=== PATIENT | male | born 1965 | race Caucasian/White ===

== ENCOUNTER 2022-12-16 09:29 | Day surgery (SDC) | payer MEDICAID, SELFPAY ==
[2022-12-16 09:49] VITALS: BP 116/88; PULSE 80; RESP 18; TEMP 36.7; O2SAT 96
[2022-12-16] MEDS: Lactated Ringers 1,000 ML 30 ML IV (10:08)
--- NOTE | 2022-12-16 10:23 | W.ANESPRE ---
General Info Date of Service Date Performed: 12/16/22 Height: 5 ft 8 in Weight: 66.7 kg Body Mass Index (BMI): 22.4 Surgical Procedure: Operation Date: 12/16/22 11:10 Proposed Procedure Side Surgeon p Micro Laryngoscopy w/Biopsy Sher Krueger MD Meds Allergies and Home Medications Allergies Allergy/AdvReac Type Severity Reaction Status Date / Time concrete Allergy Unknown Uncoded 12/16/22 09:55 Home Medication Medication Instructions Recorded aspirin 81 mg tablet,delayed 81 mg PO DAILY 10/30/22 release (Adult Aspirin Regimen) betamethasone dipropionate 0.05 % 1 applic topical DAILY 10/30/22 topical ointment bupropion HCl 150 mg 24 hr tablet, 150 mg PO QAM 12/03/22 extended release Current Visit Medications: Current Medications Generic Name Dose Route Start Last Admin Trade Name Freq PRN Reason Stop Dose Admin Ringer's Solution 1,000 mls @ 30 mls/hr 12/16/22 07:45 12/16/22 10:08 IV 01/15/23 07:44 30 mls/hr INFUSION SHAHRZAD Administration Tranexamic Acid 1,000 mg/ 60 mls @ 360 mls/hr 12/16/22 10:30 Sodium Chloride IVPB 01/15/23 10:29 PREOP SHAHRZAD IV Miscellaneous Supplies 1 each 12/16/22 06:00 Iv Access IV 12/16/22 23:59 DIRECTED SHAHRZAD Sodium Chloride 0 ml 12/16/22 06:00 Normal Saline Flush 10 Ml Syr IV 12/16/22 23:59 PRN PRN Sodium Chloride 0 ml 12/16/22 06:00 Normal Saline 10 Ml Vial IJ 12/16/22 23:59 DIRECTED PRN Sterile Water 0 ml 12/16/22 06:00 Water,Injection,Sterile 10 Ml Vial IJ 12/16/22 23:59 DIRECTED PRN PFSH Active Problems Active Problems: Problem Status Onset Code 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 Tobacco Smoking/Tobacco Use Status: Current every day Tobacco Type: cigarettes Smoking cigarettes per day: 6 Alcohol Alcohol Intake: current Alcohol intake frequency: 3 or more drinks per day Alcohol type: beer Substance Use Substance use: Never Vital Signs and Lab Results Vital Signs Most Recent Vital Signs in EMR: Most Recent Vital Signs Temp Pulse Resp BP Pulse Ox 36.7 C 80 18 116/88 96 12/16/22 09:49 12/16/22 09:49 12/16/22 09:49 12/16/22 09:49 12/16/22 09:49 Lab Results Blood Type / Crossmatch: No Data to Display Complete Blood Count: No Data to Display Complete Metabolic Panel: No Data to Display Liver Function Panel: No Data to Display Coagulation Panel: No Data to Display Cardiac Panel: No Data to Display Arterial Blood Gas: No Data to Display Venous Blood Gas: No Data to Display Pancreas Panel: No Data to Display Thyroid Panel: No Data to Display Infectious Disease: No Data to Display Blood Cultures: No Data to Display Toxicology Panel: No Data to Display Anesthesia Assessment and Plan Anesthesia History Personal History: No History of Anesthesia Complications Family History: No Family History of Anesthesia Complications Exercise Tolerance Exercise Tolerance: Metabolic Equivalents>4 Pertinent Negatives Pertinent Negatives: No Symptoms of GERD Cardiac & Pulmonary Exam Cardiac Exam: Normal S1/S2 Heart Sounds Pulmonary Exam: Clear Bilateral Breath Sounds Implantable Cardiac Device Does patient have a Pacemaker or an ICD?: No Airway Exam Known Difficult Airway: No Mallampati Class: 2 Mouth Opening: Normal (> 3cm) Thyromental Distance: Greater than 3 cm Neck Range of Motion: Full ROM Neck Circumference: Normal Teeth Condition: Generalized Poor Dentition and Advised tooth loss possible given current condition (indicate tooth) (41) ASA Classification ASA Score: ASA 2 Emergency Case?: No NPO Status NPO Status: NPO Clears >2 hours, Solids >8 hours Anesthesia Plan Resuscitation Status: Full Code Anesthesia Technique: General Anesthesia Airway Planned: Natural Airway Monitors Used: Standard Monitors
[2022-12-16 10:24] VITALS: BMI 22.4
--- NOTE | 2022-12-16 11:24 | PDOC.DSDIS_ITS ---
Date of service: 12/16/22 Time of Service: 11:26 Discharge Plan Disposition Patient Disposition: Home Condition: Good Discharge Details Reason For Visit: Laryngoscopy with biopsy Attending Provider: Sher Krueger Primary Care Provider: Cy Riojas Home Meds and New Rx's Prescriptions: No Action bupropion HCl 150 mg tablet extended release 24 hr 150 mg PO QAM aspirin [Adult Aspirin Regimen] 81 mg tablet,delayed release (DR/EC) 81 mg PO DAILY betamethasone dipropionate 0.05 % ointment 1 applic topical DAILY Discharge Instructions Additional Instructions: No driving for 72 hours. Ibuprofen or Tylenol for pain control. No dietary li mitations. Call with any concerns or problems. You should expect a phone call from me within 1 regard to the biopsy results. Please call if you do not hear from me. My cell phone number is [phone]. Please call with any concerns or problems. If you cannot reach me and you feel this is an emergency, please proceed to the emergency room or call 911 Stand Alone Forms: Anesthesia Discharge Inst., Tobin Wilhelm ([facility]) Diet:: As Tolerated Discharge Orders Discharge Orders: Discharge Order (Routine); Ordered 12/16/22 Ordered By: Sher Krueger
--- NOTE | 2022-12-16 11:37 | PHAR_PTH ---
PATIENT: Alejandro Wetzel JR LOC: [facility] U#:[id number] AGE/SX: 57/M ROOM: RE12/16/[address]: Sher Krueger MD : [id number] BED: DIS: 12/16/2022 SPEC #: [id number] RECD: 12/16/22 13:01 STATUS: IAN MA #: [id number] SANTIAGO: 12/16/22 11:[address]: Sher Krueger DEPT: Surgical Specimen RECD BY: Anahy Mckinley ENTERED: 12/16/22 13:08 SP TYPE: PHAR DAV DR: Cy Riojas Tissues: 1 - PHARYNX BIOPSY Procedures: GROSS AND MICRO LEVEL 4 IMMUNOPEROXIDASE STAIN Comments: [id number]
--- NOTE | 2022-12-16 11:47 | ROE_ITS ---
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 Unable to biopsy in the office. Options were explained to the family regarding further management. He elected to undergo the above procedure. Consent was filled out and signed prior to surgery. H&P was reviewed. There have been no changes. Findings: Necrotic mass largely replacing the epiglottis. No obvious secondary lesions. Procedure Description: After obtaining an adequate level of general mask anesthesia, the patient was positioned in supine position and prepped and draped in appropriate fashion. A video laryngoscope was carefully introduced into the oral cavity and advanced to the level of the epiglottis, and multiple biopsies were removed with cutting Blakesley's. These were placed in formalin. After ensuring relative hemostasis , and a secure airway, the patient was awakened and transported to the recovery room in stable condition. I was present throughout the entire case.
[2022-12-16 11:55] VITALS: BP 125/87; PULSE 82; RESP 18; TEMP 36.3; O2SAT 93
--- NOTE | 2022-12-16 11:58 | W.ANESPOSTOP ---
Postoperative Evaluation Date, Time and Location Date Performed: 12/16/22 Time Performed: 11:58 Patient Location: Day Surgery Unit Vital Signs Most Recent Imported Vital Signs: Most Recent Vital Signs Temp Pulse Resp BP Pulse Ox 36.7 C 80 18 116/88 96 12/16/22 09:49 12/16/22 09:49 12/16/22 09:49 12/16/22 09:49 12/16/22 09:49 Pain Score Most Recent Pain Score: Most Recent Pain Score Pain Level 0 12/16/22 09:49 Assessment Mental Status: Arousable with meaningful communication Airway and Respiratory Function: Patent airway with normal (patient baseline) respiratory exam Cardiovascular Function: Hemodynamically Stable Hydration Status: Adequately Hydrated Nausea & Vomiting: No Nausea or Vomiting Pain: Pt. Denies Any Pain Peripheral Nerve Block: Patient did not receive a nerve block
[2022-12-16 12:33] VITALS: BP 134/91; PULSE 81; RESP 16; TEMP 36.3; O2SAT 93
== END 2022-12-16 12:57 | disposition home or self-care (01) ==
PROVIDERS: PCP Nurse Practitioner Acute Care; Visit Provider Otolaryngology
PROC: 0CJS8ZZ Inspection of Larynx, Via Natural or Artificial Opening Endoscopic (ICD-10-PCS; CPT 31575; principal; 2022-12-16 11:00)
DX: C32.1 Malignant neoplasm of supraglottis (principal); R13.10 Dysphagia, unspecified; F17.210 Nicotine dependence, cigarettes, uncomplicated
CPT/HCPCS: 31535; 88305; 88361; J2001; J2250; J2704